=== PATIENT | female | born 1945 | race Caucasian/White ===

== ENCOUNTER 2019-06-09 15:24 | Emergency (ER) | payer BC, OTHER ==
[~2019-06-09] VITALS: Ht 170.2 cm; Wt 73.9 kg
[2019-06-09 15:26] VITALS: BP 186/77; Ht 170.2 cm; Wt 73.9 kg
== END 2019-06-09 16:49 | disposition home or self-care (01) ==
LOC: ED 15:24
DX: L03.113 Cellulitis of right upper limb (principal); I10 Essential (primary) hypertension; E78.00 Pure hypercholesterolemia, unspecified
CPT/HCPCS: J1885